=== PATIENT | female | born 1950 | race Caucasian/White ===

== ENCOUNTER → 2017-02-25 | Outpatient (CLI) | payer MEDICARE, BC ==
[2017-02-25 08:21] LABS: Non-African American GFR(MDRD) >60 (>60 ml/min/1.73 sqM)
--- NOTE | 2017-02-25 10:10 | MR ---
EXAMINATION TYPE: MR brain wo/w con DATE OF EXAM: 02/25/2017 COMPARISON: None available. HISTORY: 66-year-old female open wound along the top of the at 4 prior surgery of meningioma. Z86.01 1. [id number]. TECHNIQUE: Multiplanar, multisequence images of the brain and brainstem were acquired before and aft er administration of 15 mL IV MultiHance. Diffusion weighted imaging is performed. FINDINGS: There is evidence of a midline frontal craniotomy flap. There is abnormal extra-axial collection deep to the craniotomy flap with mild mass effect onto the sagittal sinus. This collection measures 3.7 c m long by 3.3 cm wide by 6 mm thick. It shows T2/FLAIR hyperintensity, low T1 signal, and correspondi ng postcontrast enhancement. These signal changes as well as enhancement extend into the overlying cr aniotomy flap along the left lateral margin and then delaminate through the interdiploic space toward s the right and may minimally break through the outer table as well, sagittal postcontrast image 58. The craniotomy flap itself has an irregular appearance, for example, refer to coronal postcontrast im age 10. The underlying dural venous sinus appears patent. There is mild dural thickening and enhancement beni g the superior right frontal region extending from the craniotomy flap likely on a postsurgical or re active basis. However, otherwise, no abnormal intracranial enhancement is seen. T2/FLAIR weighted sequences show minimal subcortical RIGHT white matter change in the right paramedia n frontal lobe. Otherwise, no white matter signal abnormality. No abnormal signal on diffusion weighted sequence. No midline shift or hydrocephalus. The ventricles and sulci are age-appropriate. Major intracranial flow voids are intact. Midline structures otherwise demonstrate normal morphology. The craniocervical junction is normal. The visualized sinuses are clear and the globes are intact. IMPRESSION: 1. Irregular, somewhat eroded appearance to the midline frontal craniotomy flap. Underlying the flap, there is a 3.7 cm long x 6 mm thick enhancing extra-axial collection that has slight mass effect ont o the subjacent sagittal sinus. There is contiguous extension of enhancement tunneling into and throu ghout the craniotomy flap and possible focal extension through the outer table as well. 2. Correlate with patient's preoperative exam as to the type and extent of the patient's meningioma. If this meningioma had intraosseous extension, findings could represent incomplete resection. Otherwi se, infective extra-axial phlegmon extending into the craniotomy flap should be excluded. 3. Some bright signal changes in the subcortical white matter of the right perimedian frontal lobe bravo s a chronic appearance. No acute intracranial abnormality otherwise seen.
== END | disposition home or self-care (01) ==
LOC: RADMRIMAIN 07:24
PROVIDERS: ATTEND Thoracic Surgery (Cardiothoracic Vascular Surgery)
DX: R90.89 Other abnormal findings on diagnostic imaging of central nervous system (principal); Z86.011 Personal history of benign neoplasm of the brain; Z98.890 Other specified postprocedural states
CPT/HCPCS: 82565; 70553; A9577

== ENCOUNTER → 2017-03-30 | Outpatient (CLI) | payer MEDICARE, BC ==
--- NOTE | 2017-03-30 09:11 | CT ---
EXAMINATION TYPE: CT brain wo con DATE OF EXAM: 03/30/2017 COMPARISON: MRI brain dated February 25, 2017 HISTORY: S/P I4D Epidural Abscess removal bone flap CT DLP: [address] of the brain was performed. The lack of contrast limits evaluation. Again noted are changes of midline frontal craniotomy flap. Previously noted abnormal fluid collectio n deep to the flap appears to have resolved. Again lack of contrast does limit evaluation. The ventricles are midline. No evidence for intracranial hemorrhage. No new extra-axial collections. Brain parenchyma appears homogeneous. If symptoms persist consider MRI. IMPRESSION: 1. Again noted are changes of midline frontal craniotomy flap. Previously noted abnormal fluid collec tion deep to the flap appears to have resolved. Consider MRI correlation if symptoms persist.
== END | disposition home or self-care (01) ==
LOC: RADCTMAIN 08:32
PROVIDERS: ATTEND Neurological Surgery
DX: Z09 Encounter for follow-up examination after completed treatment for conditions other than malignant neoplasm (principal); Z98.890 Other specified postprocedural states
CPT/HCPCS: 70450

== ENCOUNTER 2021-02-09 14:39 | Emergency (ER) | payer MEDICARE, BC ==
[2021-02-09 15:30] VITALS: BP 128/76; PULSE 73; RESP 20; TEMP 98
--- NOTE | 2021-02-09 15:46 | ED ---
Abdominal Pain HPI - General Chief Complaint: Abdominal Pain Stated Complaint: sent from for cT scan Source: patient, family, RN notes reviewed Mode of arrival: ambulatory Limitations: no limitations - History of Present Illness Initial Comments: 70-year-old well-appearing white female, presents to the emergency room with her significant other complaining of right lower quadrant pain for 3 days. Patient was sent by her primary care doctor office for CT of the abdomen to rule out appendicitis. She denies any fevers, nausea vomiting or diarrhea. She does have a history of hypertension, pulmonary embolism, chronic craniotomy for benign tumor in 2017. Patient ambulates with a steady gait. MD Complaint: abdominal pain -: days(s) (3) Location: RLQ Radiation: none Severity scale (1-10): 5 Quality: sharp Improves With: nothing Worsens With: nothing, other (palpation) Associated Symptoms: denies other symptoms - Related Data Home Medications Medication Instructions Recorded Confirmed Cholecalciferol [Vitamin D3] 1,000 unit PO DAILY 02/21/17 02/09/21 Fenofibrate Nanocrystallized 145 mg PO W/SUPPER 02/21/17 02/09/21 [Tricor] Ubidecarenone [Co Q-10] 100 mg PO DAILY 02/21/17 02/09/21 Vitamin A [Vitamin A (8,000 Units 8,000 unit PO DAILY 02/21/17 02/09/21 = 2,400 MCG)] Vitamin B Complex 1 cap PO DAILY 02/21/17 02/09/21 Vitamin E (Dl,Tocopheryl Acet) 1,000 unit PO DAILY 02/21/17 02/09/21 [Vitamin E] Fluticasone Nasal [place] [Flonase 1 spray NASAL DAILY 02/22/17 02/09/21 Nasal [place]] Hydrochlorothiazide 12.5 mg PO DAILY 02/09/21 02/09/21 [hydroCHLOROthiazide] Losartan Potassium 50 mg PO DAILY 02/09/21 02/09/21 Allergies Allergy/AdvReac Type Severity Reaction Status Date / Time shellfish derived [Shellfish] Allergy Anaphylaxis Verified 02/09/21 16:16 Sulfa (Sulfonamide Allergy Unknown Verified 02/09/21 16:16 Antibiotics) ciprofloxacin [From Cipro] AdvReac Nausea & Verified 02/09/21 16:16 Vomiting Penicillins AdvReac extreme Verified 02/09/21 16:16 swelling @injection site Review of Systems ROS Statement: Those systems with pertinent positive or pertinent negative responses have been documented in the HPI. ROS Other: All systems not noted in ROS Statement are negative. Past Medical History Past Medical History: Hypertension, Musculoskeletal Disorder, Pulmonary Embolus (PE), Skin Disorder Additional Past Medical History / Comment(s): pulmonary embolism 2009, wound on top of head from craniotomy in 2017 Dec.,hx. benign brain tumor, RSD right hand History of Any Multi-Drug Resistant Organisms: None Reported Past Surgical History: Hysterectomy, Orthopedic Surgery Additional Past Surgical History / Comment(s): cataracts removed, ORIF right ankle, craniotomy 07-05-16,x 3 2017 Past Anesthesia/Blood Transfusion Reactions: Unable to Obtain Past Psychological History: No Psychological Hx Reported Smoking Status: Former smoker Past Alcohol Use History: Rare Past Drug Use History: None Reported - Past Family History Father Brother(s) Family Medical History: Cancer Mother Family Medical History: Cancer General Exam Limitations: no limitations General appearance: alert, in no apparent distress Head exam: Present: atraumatic, normocephalic, normal inspection Eye exam: Present: normal appearance, PERRL, EOMI. Absent: scleral icterus, conjunctival injection, periorbital swelling ENT exam: Present: normal exam, normal oropharynx, mucous membranes moist Neck exam: Present: normal inspection, full ROM. Absent: tenderness, meningismus, lymphadenopathy, thyromegaly Respiratory exam: Present: normal lung sounds bilaterally, decreased breath sounds. Absent: respiratory distress, wheezes, rales, rhonchi, stridor, chest wall tenderness, accessory muscle use, prolonged expiratory Cardiovascular Exam: Present: regular rate, normal rhythm, normal heart sounds. Absent: systolic murmur, diastolic murmur, rubs, gallop, clicks GI/Abdominal exam: Present: soft, normal bowel sounds. Absent: distended, tenderness, guarding, rebound, rigid, mass, pulsatile mass, hernia Extremities exam: Present: normal inspection, full ROM, normal capillary refill, pedal edema (Patient states normal for her). Absent: tenderness, calf tenderness Back exam: Present: normal inspection, full ROM. Absent: tenderness, CVA tenderness (R), CVA tenderness (L), muscle spasm, paraspinal tenderness, vertebral tenderness, rash noted Neurological exam: Present: alert, oriented X3, CN II-XII intact Psychiatric exam: Present: normal affect, normal mood Skin exam: Present: warm, dry, intact, normal color. Absent: rash, cyanosis, diaphoretic, erythema, petechiae, pallor, mottled Course Vital Signs 02/09/21 15:26 Temperature 98.0 F Pulse Rate 73 Respiratory 20 Rate Blood Pressure 128/76 O2 Sat by Pulse 97 Oximetry Medical Decision Making - Medical Decision Making CT the abdomen without contrast done this patient states that she has stage III chronic kidney disease. There is no suspicious abnormality to account for right lower quadrant pain. Appendix is normal with no adjacent inflammatory change. WBC count is 8.6, hemoglobin and hematocrit is 13 and 39 respectively, B when is 24 with creatinine of 0.95, GFR of 61. Lactic acid is 0.8. UA is negative for signs of infection, ketones or glucose. Patient states that when she was at the doctor's office and when he was pressing on her right lower side she did feel something "squishy and bubbly" and its been sore ever since. There is no evidence of hernia. Patient states that she has had total hysterectomy. She'll be discharged to follow up with her primary care doctor. Case discussed with Dr. Mann - Lab Data Result diagrams: 02/09/21 16:40 02/09/21 16:40 Lab Results 02/09/21 02/09/21 02/09/21 Range/Units 16:40 16:40 16:40 WBC 8.6 (3.8-10.6) k/uL RBC 4.51 (3.80-5.40) m/uL Hgb 13.0 (11.4-16.0) gm/dL Hct 39.9 (34.0-46.0) % MCV 88.6 (80.0-100.0) fL MCH 28.8 (25.0-35.0) pg MCHC 32.5 (31.0-37.0) g/dL RDW 13.9 (11.5-15.5) % Plt Count 383 (150-450) k/uL MPV 7.0 Neutrophils % 70 % Lymphocytes % 21 % Monocytes % 5 % Eosinophils % 2 % Basophils % 1 % Neutrophils # 6.0 (1.3-7.7) k/uL Lymphocytes # 1.8 (1.0-4.8) k/uL Monocytes # 0.4 (0-1.0) k/uL Eosinophils # 0.1 (0-0.7) k/uL Basophils # 0.1 (0-0.2) k/uL Sodium 141 (137-145) mmol/L Potassium 4.0 (3.5-5.1) mmol/L Chloride 103 (98-107) mmol/L Carbon Dioxide 27 (22-30) mmol/L Anion Gap 11 mmol/L BUN 24 H (7-17) mg/dL Creatinine 0.95 (0.52-1.04) mg/dL Est GFR (CKD-EPI)AfAm 70 (>60 ml/min/1.73 sqM) Est GFR (CKD-EPI)NonAf 61 (>60 ml/min/1.73 sqM) Glucose 93 (74-99) mg/dL Plasma Lactic Acid Arnaldo (0.7-2.0) mmol/L Calcium 9.6 (8.4-10.2) mg/dL Total Bilirubin 0.3 (0.2-1.3) mg/dL AST 27 (14-36) U/L ALT 28 (4-34) U/L Alkaline Phosphatase 57 (38-126) U/L Total Protein 7.1 (6.3-8.2) g/dL Albumin 4.4 (3.5-5.0) g/dL Amylase 60 (30-110) U/L Lipase 87 (23-300) U/L Urine Color Light Yellow Urine Appearance Clear (Clear) Urine pH 5.5 (5.0-8.0) Ur Specific [place] 1.004 (1.001-1.035) Urine Protein Negative (Negative) Urine Glucose (UA) Negative (Negative) Urine Ketones Negative (Negative) Urine Blood Negative (Negative) Urine Nitrite Negative (Negative) Urine Bilirubin Negative (Negative) Urine Urobilinogen <2.0 (<2.0) mg/dL Ur Leukocyte Esterase Negative (Negative) 02/09/21 Range/Units 16:40 WBC (3.8-10.6) k/uL RBC (3.80-5.40) m/uL Hgb (11.4-16.0) gm/dL Hct (34.0-46.0) % MCV (80.0-100.0) fL MCH (25.0-35.0) pg MCHC (31.0-37.0) g/dL RDW (11.5-15.5) % Plt Count (150-450) k/uL MPV Neutrophils % % Lymphocytes % % Monocytes % % Eosinophils % % Basophils % % Neutrophils # (1.3-7.7) k/uL Lymphocytes # (1.0-4.8) k/uL Monocytes # (0-1.0) k/uL Eosinophils # (0-0.7) k/uL Basophils # (0-0.2) k/uL Sodium (137-145) mmol/L Potassium (3.5-5.1) mmol/L Chloride (98-107) mmol/L Carbon Dioxide (22-30) mmol/L Anion Gap mmol/L BUN (7-17) mg/dL Creatinine (0.52-1.04) mg/dL Est GFR (CKD-EPI)AfAm (>60 ml/min/1.73 sqM) Est GFR (CKD-EPI)NonAf (>60 ml/min/1.73 sqM) Glucose (74-99) mg/dL Plasma Lactic Acid Arnaldo 0.8 (0.7-2.0) mmol/L Calcium (8.4-10.2) mg/dL Total Bilirubin (0.2-1.3) mg/dL AST (14-36) U/L ALT (4-34) U/L Alkaline Phosphatase (38-126) U/L Total Protein (6.3-8.2) g/dL Albumin (3.5-5.0) g/dL Amylase (30-110) U/L Lipase (23-300) U/L Urine Color Urine Appearance (Clear) Urine pH (5.0-8.0) Ur Specific [place] (1.001-1.035) Urine Protein (Negative) Urine Glucose (UA) (Negative) Urine Ketones (Negative) Urine Blood (Negative) Urine Nitrite (Negative) Urine Bilirubin (Negative) Urine Urobilinogen (<2.0) mg/dL Ur Leukocyte Esterase (Negative) Disposition Clinical Impression: Abdominal pain Disposition: HOME SELF-CARE Condition: Good Instructions (If sedation given, give patient instructions): Abdominal Pain (ED) Additional Instructions: Follow-up with the primary care doctor. Return if any worsening symptoms including fever, nausea vomiting or diarrhea. Is patient prescribed a controlled substance at d/c from ED?: No Referrals: Meng Coombs DO [Primary Care Provider] - 1-2 days Time of Disposition: 17:25
[2021-02-09] MEDS: SODIUM CHLORIDE 0.9% 500 ML 500 ML IV STA ×2 (16:08→17:35)
--- NOTE | 2021-02-09 16:17 | CT ---
EXAMINATION TYPE: CT abdomen pelvis wo con DATE OF EXAM: 02/09/2021 COMPARISON: None INDICATION: RLQ pain with nausea. DLP: 504.4 mGycm, Automated exposure control for dose reduction was used. CONTRAST: 0 mL of Isovue 300. Study performed without Oral Contrast TECHNIQUE: Axial images were obtained from above the diaphragm to the pubic rami in the axial plane a t 5 mm thick sections. Reconstructed images are reviewed on the computer in the coronal plane. FINDINGS: Limited CT sections are obtained the lung bases. The lung bases are clear. CT ABDOMEN: Liver: Normal Spleen: Normal Pancreas: Pancreas fatty infiltration is present. Adrenal glands: The adrenal glands are normal. Gallbladder: Normal Kidneys: No masses are evident. No hydronephrosis is present. No cysts are present. No renal stone s are evident. There is a punctate calcification near the right ureterovesical junction. This appears to track outside of the ureter distally, ureteral stone is felt to be more unlikely, series 201 imag e 130. This measures 0.2 cm. Aorta: Vascular calcification is within the aorta. Inferior vena cava: Normal. CT PELVIS: Loops of bowel within the abdomen and pelvis are normal. Studies without oral contrast limiting b owel evaluation. Appendix: Normal as visualized. No adjacent inflammatory change. Urinary bladder: Normal. Genitourinary structures: Osseous structures: No suspicious lytic or sclerotic lesions. IMPRESSIONS: 1. No suspicious abnormality to account for right lower quadrant pain. Appendix is normal.
[2021-02-09] MEDS ORDERED: MORPHINE SULFATE 2 MG/ML SYRINGE IVP STA (16:27)
[2021-02-09 16:51] LABS: Basophils # (A) 0.1 k/uL (0-0.2); Basophils % (A) 1 %; Eosinophils # (A) 0.1 k/uL (0-0.7); Eosinophils % (A) 2 %; HCT 39.9 % (34.0-46.0); Lymphocytes # (A) 1.8 k/uL (1.0-4.8); Lymphocytes % (A) 21 %; MCH 28.8 pg (25.0-35.0); MCHC 32.5 g/dL (31.0-37.0); MCV 88.6 fL (80.0-100.0); Monocytes # (A) 0.4 k/uL (0-1.0); Monocytes % (A) 5 %; Neutrophils % (A) 70 %; Platelet Count 383 k/uL (150-450); RBC 4.51 m/uL (3.80-5.40); RDW 13.9 % (11.5-15.5); WBC 8.6 k/uL (3.8-10.6)
[2021-02-09 17:11] LABS: Albumin 4.4 g/dL (3.5-5.0); Calcium 9.6 mg/dL (8.4-10.2); Total Bilirubin 0.3 mg/dL (0.2-1.3); Total Protein 7.1 g/dL (6.3-8.2)
[2021-02-09 17:14] LABS: Appearance,Urine Clear (Clear); Bilirubin,Urine Negative (Negative); Blood,Urine Negative (Negative); Color,Urine Light Yellow; Glucose,Urine (UA) Negative (Negative); Ketones,Urine Negative (Negative); Leukocyte Esterase,Urine Negative (Negative); Nitrite,Urine Negative (Negative); PH, Urine 5.5 (5.0-8.0); Protein,Urine Negative (Negative); Specific Gravity,Urine 1.004 (1.001-1.035); Urobilinogen,Urine <2.0 mg/dL (<2.0)
== END 2021-02-09 17:41 | disposition home or self-care (01) ==
LOC: EC 14:39
DX: R10.31 Right lower quadrant pain (principal); I12.9 Hypertensive chronic kidney disease with stage 1 through stage 4 chronic kidney disease, or unspecified chronic kidney disease; N18.30 Chronic kidney disease, stage 3 unspecified; Z79.899 Other long term (current) drug therapy; Z86.711 Personal history of pulmonary embolism; Z87.891 Personal history of nicotine dependence; Z88.0 Allergy status to penicillin; Z88.1 Allergy status to other antibiotic agents; Z88.2 Allergy status to sulfonamides
CPT/HCPCS: 36415; 74176; 80053; 81003; 82150; 83605; 83690; 85025; 99284

== ENCOUNTER → 2021-02-09 | Outpatient (CLI) | payer MEDICARE, BC | END | disposition home or self-care (01) | LOC: RADCTMAIN 14:13 | PROVIDERS: ATTEND Family Medicine | DX: Z53.9 Procedure and treatment not carried out, unspecified reason (principal) ==